=== PATIENT | female | born 1985 | race Caucasian/White ===

== ENCOUNTER 2018-03-15 14:14 | Emergency (ER) | payer MEDICAID, OTHER ==
[2018-03-15] MEDS ORDERED: ONDANSETRON HCL 4 MG/2 ML SOL ONE (14:22)
[2018-03-15] MEDS ORDERED: SODIUM CHLORIDE 0.9% 1000ML 1,000 ML IV ONE ×2 (14:23→15:40)
[2018-03-15 14:29] LABS: BASOPHILS % (AUTO) 2 % (0-3); EOSINOPHILS % (AUTO) 0 % (0-9); HEMATOCRIT 40 % (35-47); HEMOGLOBIN 13.7 gm/dl (12.0-15.5); LYMPHOCYTES % (AUTO) 42.6 % (10-50); MEAN CORPUSCULAR HEMOGLOBIN 31.8 pg (27.0-32.0); MEAN CORPUSCULAR HGB CONC 34.1 gm/dl (32.0-36.0); MEAN CORPUSCULAR VOLUME 93 fL (81-99); NEUTROPHILS % (AUTO) 46.6 % (37-80)
[2018-03-15 14:52] LABS: ALKALINE PHOSPHATASE 66 IU/L (46-116); ALT 35 IU/L (14-63); AST 35 IU/L (15-37); BILIRUBIN,TOTAL 0.2 mg/dl (0.2-1.0); BLOOD UREA NITROGEN 5 mg/dl (7-18); CALCIUM 8.7 mg/dl (8.5-10.1); CARBON DIOXIDE 28.4 mEq/L (21-32); CHLORIDE 105 mMol/L (98-107); CREATININE 0.85 mg/dl (0.60-1.00); GLOM FILT RATE 78 mL/min (>60); GLUCOSE 136 mg/dl (74-106); POTASSIUM 3.3 mMol/L (3.5-5.1); SALICYLATE 2.9 mg/dl (2.8-30.0); SODIUM 146 mMol/L (136-145); THYROID STIMULATING HORMONE 1.404 uIU/ml (0.358-3.740); TOTAL PROTEIN 7.9 gm/dl (6.4-8.2)
[2018-03-15 14:53] LABS: ACETAMINOPHEN < 2 ug/ml (10-30)
[2018-03-15 14:54] LABS: ALCOHOL 0.363 gm/dl (0.000-0.08)
[2018-03-15 17:56] LABS: APPEARANCE,URINE Clear; BILIRUBIN,URINE NEGATIVE (NEGATIVE); COLOR,URINE Light yellow; GLUCOSE, URINE (UA) NEGATIVE (NEGATIVE); KETONES,URINE NEGATIVE (NEGATIVE); LEUKOCYTE ESTERASE ,URINE NEGATIVE (NEGATIVE); NITRATE,URINE NEGATIVE (NEGATIVE); OCCULT BLOOD,URINE NEGATIVE (NEG-TRACE); UROBILINOGEN,URINE 0.2 (0.2-1.0 EU)
[2018-03-15 18:01] LABS: RBC,URINE 0-2 (0-3AV/HPF); WBC,URINE 0-2 (0-5AV/HPF)
[2018-03-15 18:02] LABS: AMPHETAMINES NEGATIVE (NEGATIVE); BACTERIA 1+ (< 1+); BARBITUATES NEGATIVE (NEGATIVE); BENZODIAZEPINES NEGATIVE (NEGATIVE); CANNABINOL(THC) NEGATIVE (NEGATIVE); COCAINE(COC) NEGATIVE (NEGATIVE); CRYSTALS NEGATIVE (0-3 AVE/HPF); METHADONE NEGATIVE (NEGATIVE); METHAMPHETAMINES NEGATIVE (NEGATIVE); OPIATES(OP13) NEGATIVE (NEGATIVE); OXYCODONE(OXY) POSITIVE (NEGATIVE); PROPOXYPHENE(PPX) NEGATIVE (NEGATIVE); TRICYCLIC ANTIDEPRESSANTS NEGATIVE (NEGATIVE)
[2018-03-15] MEDS ORDERED: LIDOCAINE HCL 2% (VISCOUS) 20 ML SOL MT ONE (20:13)
[2018-03-15] MEDS ORDERED: ALUMINUM/MAGNESIUM 30 ML SUS PO ONE (20:13)
[2018-03-15] MEDS ORDERED: ALUMINUM/MAGNESIUM 30 ML SUS ONE (20:28)
[2018-03-15] MEDS ORDERED: LIDOCAINE HCL 2% (VISCOUS) 20 ML SOL ONE (20:28)
[2018-03-16 05:41] VITALS: TEMP 98.1
[2018-03-16 08:31] VITALS: RESP 22
[2018-03-16 09:37] VITALS: BP 131/83; PULSE 97; O2SAT 94
== END 2018-03-16 09:15 ==
LOC: ED 14:14
DX: T50.992A Poisoning by other drugs, medicaments and biological substances, intentional self-harm, initial encounter (principal); F10.129 Alcohol abuse with intoxication, unspecified; F11.90 Opioid use, unspecified, uncomplicated; Y90.8 Blood alcohol level of 240 mg/100 ml or more
CPT/HCPCS: 80053; 80305; 80307; 81001; 84443; 84703; 85025; 93005; 96365; 96366; 99284; 99285; J2405; A9270-GY

== ENCOUNTER 2018-06-05 15:06 | Emergency (ER) | payer OTHER ==
[2018-06-05] MEDS: SODIUM CHLORIDE 0.9% 1000ML 1,000 ML IV SCH ×2 (15:35→16:31)
[2018-06-05 15:40] LABS: BASOPHILS % (AUTO) 2 % (0-3); EOSINOPHILS % (AUTO) 1 % (0-9); HEMATOCRIT 38 % (35-47); HEMOGLOBIN 12.5 gm/dl (12.0-15.5); LYMPHOCYTES % (AUTO) 34.2 % (10-50); MEAN CORPUSCULAR HEMOGLOBIN 29.1 pg (27.0-32.0); MEAN CORPUSCULAR HGB CONC 32.6 gm/dl (32.0-36.0); MEAN CORPUSCULAR VOLUME 89 fL (81-99); MONOCYTES % (AUTO) 21.7 % (0-12); NEUTROPHILS % (AUTO) 40.9 % (37-80)
[2018-06-05 15:49] LABS: LACTIC ACID 6.4 mMol/L (0.0-2.0)
[2018-06-05 15:53] LABS: BILIRUBIN,TOTAL 0.3 mg/dl (0.2-1.0); CALCIUM 8.1 mg/dl (8.5-10.1); CARBON DIOXIDE 27.9 mEq/L (21-32); CREATININE 0.9 mg/dl (0.60-1.00); POTASSIUM 4.3 mMol/L (3.5-5.1); TOTAL PROTEIN 6.3 gm/dl (6.4-8.2)
[2018-06-05 15:55] LABS: ALCOHOL 0.176 gm/dl (0.000-0.08)
[2018-06-05 15:58] LABS: APPEARANCE,URINE Clear; BILIRUBIN,URINE NEGATIVE (NEGATIVE); COLOR,URINE Yellow; GLUCOSE, URINE (UA) NEGATIVE (NEGATIVE); KETONES,URINE NEGATIVE (NEGATIVE); LEUKOCYTE ESTERASE ,URINE NEGATIVE (NEGATIVE); NITRATE,URINE NEGATIVE (NEGATIVE); OCCULT BLOOD,URINE NEGATIVE (NEG-TRACE)
[2018-06-05 16:01] LABS: RBC,URINE 0-2 (0-3AV/HPF)
[2018-06-05 16:02] LABS: AMPHETAMINES NEGATIVE (NEGATIVE); BACTERIA RARE (< 1+); BARBITUATES NEGATIVE (NEGATIVE); BENZODIAZEPINES NEGATIVE (NEGATIVE); CANNABINOL(THC) NEGATIVE (NEGATIVE); COCAINE(COC) NEGATIVE (NEGATIVE); CRYSTALS NEGATIVE (0-3 AVE/HPF); METHADONE NEGATIVE (NEGATIVE); METHAMPHETAMINES NEGATIVE (NEGATIVE); OPIATES(OPI) NEGATIVE (NEGATIVE); OXYCODONE(OXY) NEGATIVE (NEGATIVE); PROPOXYPHENE(PPX) NEGATIVE (NEGATIVE); TRICYCLIC ANTIDEPRESSANTS NEGATIVE (NEGATIVE); WBC,URINE 0-2 (0-5AV/HPF)
[2018-06-05] MEDS ORDERED: SODIUM CHLORIDE 0.9% 1000ML 1,000 ML IV ONE (16:45)
[2018-06-05] MEDS ORDERED: LEVOFLOXACIN 25 MG/ML 750 MG in SODIUM CHLORIDE 0.9% 250 ML 150 ML IV ONE (18:40)
[2018-06-05] MEDS ORDERED: LEVOFLOXACIN 25 MG/ML SOL IV ONE (18:50)
[2018-06-05 19:29] VITALS: RESP 18; TEMP 97.2; O2SAT 97
[2018-06-05 19:43] VITALS: BP 110/78; PULSE 90
== END 2018-06-05 19:49 | disposition short-term general hospital (02) ==
LOC: ED 15:06
DX: R40.0 Somnolence (principal)
CPT/HCPCS: 36415; 70450; 80053; 80305; 80307; 81001; 84703; 85025; 87040; 96365; 96366; 99284; 99285; J1956

== ENCOUNTER 2018-07-02 23:20 | Emergency (ER) | payer OTHER ==
[2018-07-03 00:06] VITALS: O2SAT 100
[2018-07-03 00:44] LABS: BASOPHILS % (AUTO) 2 % (0-3); EOSINOPHILS % (AUTO) 1 % (0-9); HEMATOCRIT 40 % (35-47); LYMPHOCYTES % (AUTO) 37.8 % (10-50); MEAN CORPUSCULAR HEMOGLOBIN 29.8 pg (27.0-32.0); MEAN CORPUSCULAR HGB CONC 32.3 gm/dl (32.0-36.0); MEAN CORPUSCULAR VOLUME 92 fL (81-99); MONOCYTES % (AUTO) 8.7 % (0-12); NEUTROPHILS % (AUTO) 50.9 % (37-80)
[2018-07-03 00:57] LABS: ALBUMIN 3.7 gm/dl (3.4-5.0); BILIRUBIN,TOTAL 0.3 mg/dl (0.2-1.0); CALCIUM 8.1 mg/dl (8.5-10.1); CARBON DIOXIDE 28.8 mEq/L (21-32); CREATININE 0.84 mg/dl (0.60-1.00); POTASSIUM 3.9 mMol/L (3.5-5.1); THYROID STIMULATING HORMONE 4.531 uIU/ml (0.358-3.740); TOTAL PROTEIN 7.4 gm/dl (6.4-8.2)
[2018-07-03 00:58] LABS: ALCOHOL 0.367 gm/dl (0.000-0.08)
[2018-07-03 03:44] VITALS: PULSE 105
[2018-07-03 03:45] VITALS: BP 114/82; RESP 16; TEMP 98.7
[2018-07-03] MEDS ORDERED: VALPROATE SODIUM IV ONE (04:03)
[2018-07-03] MEDS ORDERED: ONDANSETRON 4 MG ODT ONE (04:15)
[2018-07-03] MEDS ORDERED: ACETAMINOPHEN 500 MG 500 MG TAB ONE (04:17)
[2018-07-03] MEDS ORDERED: ONDANSETRON 4 MG ODT BU ONE (04:19)
[2018-07-03] MEDS ORDERED: ACETAMINOPHEN 500 MG 500 MG TAB PO ONE (04:19)
[2018-07-03] MEDS ORDERED: DIVALPROEX 250 MG TCP PO ONE (04:20)
[2018-07-03] MEDS ORDERED: SODIUM CHLORIDE 0.9% 1000ML 1,000 ML IV ONE (04:20)
[2018-07-03 04:37] LABS: APPEARANCE,URINE Clear; BILIRUBIN,URINE NEGATIVE (NEGATIVE); COLOR,URINE Light yellow; GLUCOSE, URINE (UA) NEGATIVE (NEGATIVE); KETONES,URINE NEGATIVE (NEGATIVE); LEUKOCYTE ESTERASE ,URINE NEGATIVE (NEGATIVE); NITRATE,URINE NEGATIVE (NEGATIVE); OCCULT BLOOD,URINE NEGATIVE (NEG-TRACE); PH,URINE 7.5; UROBILINOGEN,URINE 0.2 (0.2-1.0 EU)
[2018-07-03 04:44] LABS: AMPHETAMINES NEGATIVE (NEGATIVE); BARBITUATES NEGATIVE (NEGATIVE); BENZODIAZEPINES NEGATIVE (NEGATIVE); CANNABINOL(THC) NEGATIVE (NEGATIVE); COCAINE(COC) NEGATIVE (NEGATIVE); METHADONE NEGATIVE (NEGATIVE); METHAMPHETAMINES NEGATIVE (NEGATIVE); OPIATES(OPI) NEGATIVE (NEGATIVE); OXYCODONE(OXY) NEGATIVE (NEGATIVE); PROPOXYPHENE(PPX) NEGATIVE (NEGATIVE); TRICYCLIC ANTIDEPRESSANTS NEGATIVE (NEGATIVE)
[2018-07-03 04:49] LABS: BACTERIA TRACE (< 1+); CRYSTALS NEGATIVE (0-3 AVE/HPF); EPITHELIAL CELLS 0-2 (SQUAMOUS); RBC,URINE 0-1 (0-3AV/HPF); WBC,URINE 0-1 (0-5AV/HPF)
== END 2018-07-03 04:38 | disposition short-term general hospital (02) ==
LOC: ED 23:20
DX: R45.851 Suicidal ideations (principal); F32.9 Major depressive disorder, single episode, unspecified; F41.9 Anxiety disorder, unspecified; F10.10 Alcohol abuse, uncomplicated; F50.81 Binge eating disorder
CPT/HCPCS: 36415; 80053; 80305; 80307; 81001; 84443; 84703; 85025; 96365; 99283; 99285; A9270-GY; J3490

== ENCOUNTER 2018-07-21 17:24 | Observation (INO) | payer OTHER ==
[2018-07-21] MEDS ORDERED: LORAZEPAM 2 MG/ML SOL IV ONE (17:32)
[2018-07-21 17:36] VITALS: RESP 18
[2018-07-21] MEDS ORDERED: LORAZEPAM 2 MG/ML SOL ONE (17:37)
[2018-07-21] MEDS ORDERED: FOLIC ACID 1 MG TAB PO ONE (17:43)
[2018-07-21] MEDS ORDERED: THIAMINE 100 MG/ML 100 MG/ML SOL IV ONE (17:43)
[2018-07-21] MEDS ORDERED: SODIUM CHLORIDE 0.9% 1000ML 1,000 ML IV SCH (17:45)
[2018-07-21] MEDS ORDERED: THIAMINE 100 MG/ML 100 MG/ML SOL ONE (17:58)
[2018-07-21] MEDS ORDERED: FOLIC ACID 1 MG TAB ONE (17:58)
[2018-07-21] MEDS: SODIUM CHLORIDE 0.9% FLUSH 10 ML SOL IV PRN (18:03)
[2018-07-21 18:22] LABS: HEMATOCRIT 36 % (35-47); HEMOGLOBIN 11.4 gm/dl (12.0-15.5); MEAN CORPUSCULAR HEMOGLOBIN 29.7 pg (27.0-32.0); MEAN CORPUSCULAR VOLUME 93 fL (81-99)
[2018-07-21 18:36] LABS: ALBUMIN 3.6 gm/dl (3.4-5.0); BILIRUBIN,TOTAL 0.8 mg/dl (0.2-1.0); CALCIUM 8.2 mg/dl (8.5-10.1); CARBON DIOXIDE 30.9 mEq/L (21-32); CREATININE 0.86 mg/dl (0.60-1.00); MAGNESIUM 1.8 mg/dl (1.8-2.4); POTASSIUM 3.3 mMol/L (3.5-5.1); TOTAL PROTEIN 6.8 gm/dl (6.4-8.2)
[2018-07-21 18:49] LABS: NEUTROPHILS % (MANUAL) 86 % (37-80)
[2018-07-21 18:50] LABS: BAND NEUTROPHILS % (MANUAL) 1 %; BASOPHILS % (MANUAL) 1 % (0-3); EOSINOPHILS % (MANUAL) 0 % (0-9); LYMPHOCYTES % (MANUAL) 12 % (10-50); MONOCYTES % (MANUAL) 0 % (0-12); POIKILOCYTOSIS SLIGHT AMT; SPHEROCYTES PRESENT; TARGET CELLS PRESENT
[2018-07-21 19:44] LABS: APPEARANCE,URINE Clear; BILIRUBIN,URINE NEGATIVE (NEGATIVE); COLOR,URINE Yellow; GLUCOSE, URINE (UA) NEGATIVE (NEGATIVE); KETONES,URINE NEGATIVE (NEGATIVE); LEUKOCYTE ESTERASE ,URINE NEGATIVE (NEGATIVE); NITRATE,URINE NEGATIVE (NEGATIVE); OCCULT BLOOD,URINE NEGATIVE (NEG-TRACE); PH,URINE 7.5; UROBILINOGEN,URINE 0.2 (0.2-1.0 EU)
[2018-07-21 19:49] LABS: BACTERIA 1+ (< 1+); CRYSTALS NEGATIVE (0-3 AVE/HPF); RBC,URINE 0-2 (0-3AV/HPF); WBC,URINE 0-2 (0-5AV/HPF)
[2018-07-21] MEDS ORDERED: ACETAMINOPHEN 500 MG 500 MG TAB PO PRN (19:49)
[2018-07-21 19:50] LABS: AMPHETAMINES NEGATIVE (NEGATIVE); BARBITUATES NEGATIVE (NEGATIVE); BENZODIAZEPINES POSITIVE (NEGATIVE); CANNABINOL(THC) POSITIVE (NEGATIVE); COCAINE(COC) NEGATIVE (NEGATIVE); METHADONE NEGATIVE (NEGATIVE); METHAMPHETAMINES NEGATIVE (NEGATIVE); OPIATES(OPI) NEGATIVE (NEGATIVE); OXYCODONE(OXY) NEGATIVE (NEGATIVE); PROPOXYPHENE(PPX) NEGATIVE (NEGATIVE); TRICYCLIC ANTIDEPRESSANTS POSITIVE (NEGATIVE)
[2018-07-21] MEDS: POTASSIUM CHLORIDE 10 MEQ TER PO SCH ×2 (21:08→23:56)
[2018-07-21] MEDS: PANTOPRAZOLE SODIUM 40 MG ECT PO SCH (21:09)
[2018-07-21] MEDS: GABAPENTIN 300 MG CAP PO SCH (21:10)
[2018-07-21] MEDS: DIVALPROEX SODIUM 500 MG PO SCH (21:18)
[2018-07-22 00:05] VITALS: O2SAT 98
[2018-07-22] MEDS: POTASSIUM CHLORIDE 10 MEQ TER PO SCH (02:43)
[2018-07-22] MEDS: SODIUM CHLORIDE 0.9% FLUSH 10 ML SOL IV PRN (02:45)
[2018-07-22] MEDS ORDERED: LEVOTHYROXINE 0.025MG 0.025 MG TAB PO SCH (07:00)
[2018-07-22 07:24] LABS: CALCIUM 7.8 mg/dl (8.5-10.1); CARBON DIOXIDE 24.9 mEq/L (21-32); CREATININE 0.78 mg/dl (0.60-1.00); POTASSIUM 4.8 mMol/L (3.5-5.1)
[2018-07-22] MEDS ORDERED: LEVOTHYROXINE SODIUM 50 MCG TAB ONE ×2 (07:41→07:43)
[2018-07-22 07:54] VITALS: BP 115/80; PULSE 91; TEMP 98.3
[2018-07-22] MEDS: GABAPENTIN 300 MG CAP PO SCH (08:58)
[2018-07-22] MEDS: PANTOPRAZOLE SODIUM 40 MG ECT PO SCH (08:58)
[2018-07-22] MEDS: DIVALPROEX SODIUM 500 MG PO SCH (08:58)
[2018-07-22] MEDS ORDERED: FLUOXETINE HYDROCHLORIDE 10 MG CAP PO SCH (09:00)
[2018-07-22] MEDS ORDERED: THIAMINE 100 MG TAB PO SCH (09:00)
== END 2018-07-22 09:20 | disposition home or self-care (01) ==
LOC: ED 17:24 → ACUTE CARE 18:44 → UNDOADMOB 18:44 → ACUTE CARE 18:50
PROVIDERS: ADMIT Family Medicine; ATTEND Family Medicine
DX: R56.9 Unspecified convulsions (principal); F10.239 Alcohol dependence with withdrawal, unspecified; R51 Headache; F10.129 Alcohol abuse with intoxication, unspecified; E87.6 Hypokalemia
CPT/HCPCS: 36415; 70450; 80048; 80053; 80305; 80307; 81001; 83735; 84703; 85007; 85027; 93005; 96365; 96374; 96375; 99283; 99285; J2060; A9270-GY; J3411

== ENCOUNTER 2018-12-06 23:04 | Inpatient (IN) | payer OTHER ==
[2018-12-06 23:55] LABS: APPEARANCE,URINE Clear; BILIRUBIN,URINE NEGATIVE (NEGATIVE); COLOR,URINE Light yellow; GLUCOSE, URINE (UA) NEGATIVE (NEGATIVE); KETONES,URINE NEGATIVE (NEGATIVE); LEUKOCYTE ESTERASE ,URINE NEGATIVE (NEGATIVE); NITRATE,URINE NEGATIVE (NEGATIVE); OCCULT BLOOD,URINE NEGATIVE (NEG-TRACE); PH,URINE 6.5; UROBILINOGEN,URINE 0.2 (0.2-1.0 EU)
[2018-12-07] LABS: AMPHETAMINES NEGATIVE (NEGATIVE); BARBITUATES NEGATIVE (NEGATIVE); BENZODIAZEPINES NEGATIVE (NEGATIVE); CANNABINOL(THC) NEGATIVE (NEGATIVE); COCAINE(COC) NEGATIVE (NEGATIVE); METHADONE NEGATIVE (NEGATIVE); METHAMPHETAMINES NEGATIVE (NEGATIVE); OPIATES(OPI) NEGATIVE (NEGATIVE); OXYCODONE(OXY) NEGATIVE (NEGATIVE); PROPOXYPHENE(PPX) NEGATIVE (NEGATIVE); TRICYCLIC ANTIDEPRESSANTS NEGATIVE (NEGATIVE)
[2018-12-07 00:06] LABS: BASOPHILS % (AUTO) 2 % (0-3); EOSINOPHILS % (AUTO) 1 % (0-9); HEMATOCRIT 38 % (35-47); HEMOGLOBIN 12.6 gm/dl (12.0-15.5); LYMPHOCYTES % (AUTO) 50.9 % (10-50); MEAN CORPUSCULAR HEMOGLOBIN 30.8 pg (27.0-32.0); MEAN CORPUSCULAR HGB CONC 33.5 gm/dl (32.0-36.0); MEAN CORPUSCULAR VOLUME 92 fL (81-99); MONOCYTES % (AUTO) 7.1 % (0-12)
[2018-12-07 00:10] LABS: ALBUMIN 3.8 gm/dl (3.4-5.0); ALKALINE PHOSPHATASE 71 IU/L (46-116); ALT 34 IU/L (14-63); AST 41 IU/L (15-37); BILIRUBIN,TOTAL 0.2 mg/dl (0.2-1.0); BLOOD UREA NITROGEN 8 mg/dl (7-18); CALCIUM 8.4 mg/dl (8.5-10.1); CARBON DIOXIDE 31.2 mEq/L (21-32); CHLORIDE 105 mMol/L (98-107); CREATININE 0.67 mg/dl (0.60-1.00); GLUCOSE 97 mg/dl (74-106); SODIUM 147 mMol/L (136-145); THYROID STIMULATING HORMONE 3.179 uIU/ml (0.358-3.740); TOTAL PROTEIN 7.5 gm/dl (6.4-8.2)
[2018-12-07 00:11] LABS: ACETAMINOPHEN < 2 ug/ml (10-30)
[2018-12-07 00:12] LABS: ALCOHOL 0.434 gm/dl (0.000-0.08); POTASSIUM 2.6 mMol/L (3.5-5.1)
[2018-12-07 00:18] LABS: BACTERIA 1+ (< 1+); CRYSTALS NEGATIVE (0-3 AVE/HPF); EPITHELIAL CELLS 0-3 (SQUAMOUS); RBC,URINE 0-2 (0-3AV/HPF); WBC,URINE NEGATIVE (0-5AV/HPF)
[2018-12-07] MEDS ORDERED: NALOXONE HYDROCHLORIDE 0.4 MG/ML SOL IV PRN ×2 (00:34→00:36)
[2018-12-07] MEDS ORDERED: NALOXONE HYDROCHLORIDE 0.4 MG/ML SOL ONE (00:34)
[2018-12-07] MEDS ORDERED: SODIUM CHLORIDE 0.9% 1000ML 1,000 ML IV ONE ×3 (00:36→10:53)
[2018-12-07] MEDS ORDERED: HALOPERIDOL LACTATE 5 MG/ML SOL IV ONE ×2 (00:42→00:57)
[2018-12-07] MEDS ORDERED: HALOPERIDOL LACTATE 5 MG/ML SOL ONE ×2 (00:44→00:59)
[2018-12-07] MEDS ORDERED: SODIUM CHLORIDE 0.9% 250 ML 250 ML IV ONE (01:00)
[2018-12-07] MEDS ORDERED: ALUMINUM/MAGNESIUM 30 ML SUS PO PRN (01:05)
[2018-12-07] MEDS ORDERED: ONDANSETRON HCL 4 MG/2 ML SOL IV PRN (01:05)
[2018-12-07] MEDS ORDERED: LORAZEPAM 2 MG/ML SOL IV PRN ×2 (01:05→01:25)
[2018-12-07] MEDS ORDERED: POTASSIUM CHLORIDE 2 MEQ/ML 60 MEQ, LIDOCAINE HCL 1% MDV 2 ML in SODIUM CHLORIDE 0.9% 1... IV ONE (01:21)
[2018-12-07] MEDS ORDERED: LIDOCAINE HCL 1% MPF 30 SOL ONE (01:46)
[2018-12-07] MEDS ORDERED: POTASSIUM CHLORIDE 2 MEQ/ML SOL IV ONE (01:47)
[2018-12-07] MEDS: SODIUM CHLORIDE 0.9% FLUSH 10 ML SOL IV SCH ×3 (02:17→17:58)
[2018-12-07] MEDS ORDERED: LEVOTHYROXINE 0.025MG 0.025 MG TAB PO SCH (07:00)
[2018-12-07 08:02] LABS: ALBUMIN 2.9 gm/dl (3.4-5.0); BILIRUBIN,TOTAL 0.2 mg/dl (0.2-1.0); CARBON DIOXIDE 27.5 mEq/L (21-32); CREATININE 0.56 mg/dl (0.60-1.00); POTASSIUM 3.7 mMol/L (3.5-5.1); TOTAL PROTEIN 5.7 gm/dl (6.4-8.2)
[2018-12-07 08:17] LABS: ALCOHOL 0.262 gm/dl (0.000-0.08)
[2018-12-07] MEDS ORDERED: PANTOPRAZOLE SODIUM 40 MG/10 ML PDS IV SCH (09:00)
[2018-12-07] MEDS ORDERED: DIVALPROEX SODIUM 500 MG PO SCH (09:00)
[2018-12-07] MEDS ORDERED: LEVOTHYROXINE SODIUM 50 MCG TAB ONE (10:41)
[2018-12-07] MEDS: FLUOXETINE HYDROCHLORIDE 10 MG CAP PO SCH (10:51)
[2018-12-07] MEDS: GABAPENTIN 300 MG CAP PO SCH ×3 (10:51→20:07)
[2018-12-07] MEDS: MULTIVITAMIN2 1 EA TAB PO SCH (10:51)
[2018-12-07] MEDS: FOLIC ACID 1 MG TAB PO SCH (10:51)
[2018-12-07] MEDS: THIAMINE 100 MG TAB PO SCH (10:52)
[2018-12-07] MEDS: ACETAMINOPHEN 325 MG PO PRN (12:18)
[2018-12-07] MEDS: SODIUM CHLORIDE 0.45% 1000 ML 1,000 ML IV SCH ×2 (12:18→20:11)
[2018-12-07] MEDS: LORAZEPAM 0.5 MG TAB PO PRN ×2 (16:22→20:05)
[2018-12-07] MEDS: MAGNESIUM OXIDE 400 MG TAB PO SCH (16:22)
[2018-12-07] MEDS ORDERED: PRAZOSIN HCL 1 MG PO SCH (21:00)
[2018-12-08] MEDS: ACETAMINOPHEN 325 MG PO PRN ×2 (00:25→09:08)
[2018-12-08] MEDS: SODIUM CHLORIDE 0.45% 1000 ML 1,000 ML IV SCH (04:57)
[2018-12-08 05:00] VITALS: RESP 16
[2018-12-08] MEDS: SODIUM CHLORIDE 0.9% FLUSH 10 ML SOL IV SCH ×3 (05:06→17:24)
[2018-12-08] MEDS ORDERED: LEVOTHYROXINE SODIUM 50 MCG TAB PO SCH (07:00)
[2018-12-08 07:49] LABS: MAGNESIUM 1.3 mg/dl (1.8-2.4)
[2018-12-08 07:52] LABS: ALCOHOL < 0.003 gm/dl (0.000-0.08)
[2018-12-08 08:54] VITALS: O2SAT 98
[2018-12-08] MEDS ORDERED: PANTOPRAZOLE SODIUM 40 MG ECT PO SCH ×2 (09:00→11:00)
[2018-12-08] MEDS ORDERED: ONDANSETRON HCL 4 MG TAB PO PRN (09:01)
[2018-12-08] MEDS ORDERED: MAGNESIUM HYDROXIDE 30 ML SUS PO PRN (09:01)
[2018-12-08] MEDS: LORAZEPAM 0.5 MG TAB PO PRN ×2 (09:08→17:29)
[2018-12-08] MEDS: GABAPENTIN 300 MG CAP PO SCH ×2 (09:08→15:03)
[2018-12-08] MEDS: THIAMINE 100 MG TAB PO SCH (09:09)
[2018-12-08] MEDS: FOLIC ACID 1 MG TAB PO SCH (09:09)
[2018-12-08] MEDS: FLUOXETINE HYDROCHLORIDE 10 MG CAP PO SCH (09:09)
[2018-12-08] MEDS: MAGNESIUM OXIDE 400 MG TAB PO SCH (09:10)
[2018-12-08] MEDS: MULTIVITAMIN2 1 EA TAB PO SCH (09:10)
[2018-12-08 17:24] VITALS: BP 116/80; PULSE 89; TEMP 98.2
== END 2018-12-08 19:27 | DRG 918 ==
LOC: ED 23:04 → UNDOADMIN 12-07 00:21 → ACUTE CARE 12-07 00:21 → OBSVTOIN 12-07 11:30 → UNDOADMIN 12-07 11:30 → UNDODISIN 12-08 19:27
PROVIDERS: ADMIT Family Medicine; ATTEND Family Medicine
PROC: F01 Physical Rehabilitation and Diagnostic Audiology, Rehabilitation, Motor and/or Nerve Function Assessment (ICD-10-PCS; principal; 2018-12-08)
PROC: F01L5ZZ Range of Motion and Joint Integrity Assessment of Musculoskeletal System - Lower Back / Lower Extremity (ICD-10-PCS; 2018-12-08)
DX: T40.2X2A Poisoning by other opioids, intentional self-harm, initial encounter (principal); T48.1X2A Poisoning by skeletal muscle relaxants [neuromuscular blocking agents], intentional self-harm, initial encounter; F10.120 Alcohol abuse with intoxication, uncomplicated; Y90.8 Blood alcohol level of 240 mg/100 ml or more; S51.812D Laceration without foreign body of left forearm, subsequent encounter; X83.8XXD Intentional self-harm by other specified means, subsequent encounter; F32.9 Major depressive disorder, single episode, unspecified; F41.9 Anxiety disorder, unspecified; E87.6 Hypokalemia; T14.91XA Suicide attempt, initial encounter
CPT/HCPCS: 36415; 80053; 80305; 80307; 81001; 83735; 84443; 84703; 85025; 93005; 93012; 94762; 99070; 99222; 99285; J1630; J2310; J2405; J3480; A6232; A9270-GY; J2001

== ENCOUNTER 2018-12-19 15:24 | Inpatient (IN) | payer OTHER ==
[2018-12-19] MEDS ORDERED: HALOPERIDOL LACTATE 5 MG/ML SOL IM ONE (16:04)
[2018-12-19] MEDS ORDERED: LORAZEPAM 2 MG/ML SOL IM PRN ×2 (16:06→17:11)
[2018-12-19] MEDS ORDERED: HALOPERIDOL LACTATE 5 MG/ML SOL ONE (16:28)
[2018-12-19] MEDS ORDERED: LORAZEPAM 2 MG/ML SOL ONE (16:28)
[2018-12-19] MEDS ORDERED: DIPHENHYDRAMINE 50 MG/ML SOL IM ONE (17:11)
[2018-12-19 17:32] LABS: BASOPHILS % (AUTO) 2 % (0-3); EOSINOPHILS % (AUTO) 0 % (0-9); HEMATOCRIT 38 % (35-47); HEMOGLOBIN 12.5 gm/dl (12.0-15.5); LYMPHOCYTES % (AUTO) 36.7 % (10-50); MEAN CORPUSCULAR HEMOGLOBIN 30.5 pg (27.0-32.0); MEAN CORPUSCULAR HGB CONC 32.8 gm/dl (32.0-36.0); MEAN CORPUSCULAR VOLUME 93 fL (81-99); MONOCYTES % (AUTO) 8.5 % (0-12)
[2018-12-19 17:53] LABS: ALBUMIN 3.7 gm/dl (3.4-5.0); ALKALINE PHOSPHATASE 57 IU/L (46-116); ALT 14 IU/L (14-63); AST 20 IU/L (15-37); BILIRUBIN,TOTAL 0.1 mg/dl (0.2-1.0); BLOOD UREA NITROGEN 10 mg/dl (7-18); CALCIUM 7.9 mg/dl (8.5-10.1); CHLORIDE 105 mMol/L (98-107); CREATININE 0.59 mg/dl (0.60-1.00); GLUCOSE 99 mg/dl (74-106); POTASSIUM 3.7 mMol/L (3.5-5.1); SALICYLATE < 2.8 mg/dl (2.8-30.0); SODIUM 143 mMol/L (136-145); TOTAL PROTEIN 6.9 gm/dl (6.4-8.2)
[2018-12-19 17:55] LABS: ACETAMINOPHEN < 2 ug/ml (10-30); ALCOHOL 0.342 gm/dl (0.000-0.08)
[2018-12-19] MEDS: SODIUM CHLORIDE 0.9% 1000ML 1,000 ML IV SCH ×2 (20:15→20:53)
[2018-12-19] MEDS ORDERED: SODIUM CHLORIDE 0.9% 1000ML 1,000 ML IV ONE (22:43)
[2018-12-19 23:34] LABS: APPEARANCE,URINE Clear; BILIRUBIN,URINE NEGATIVE (NEGATIVE); COLOR,URINE Yellow; GLUCOSE, URINE (UA) NEGATIVE (NEGATIVE); KETONES,URINE NEGATIVE (NEGATIVE); LEUKOCYTE ESTERASE ,URINE NEGATIVE (NEGATIVE); NITRATE,URINE NEGATIVE (NEGATIVE); OCCULT BLOOD,URINE NEGATIVE (NEG-TRACE); UROBILINOGEN,URINE 0.2 (0.2-1.0 EU)
[2018-12-19 23:46] LABS: AMPHETAMINES NEGATIVE (NEGATIVE); BACTERIA 2+ (< 1+); BARBITUATES NEGATIVE (NEGATIVE); BENZODIAZEPINES NEGATIVE (NEGATIVE); CANNABINOL(THC) NEGATIVE (NEGATIVE); COCAINE(COC) NEGATIVE (NEGATIVE); CRYSTALS NEGATIVE (0-3 AVE/HPF); EPITHELIAL CELLS 0-5 (SQUAMOUS); METHADONE NEGATIVE (NEGATIVE); METHAMPHETAMINES NEGATIVE (NEGATIVE); OPIATES(OPI) NEGATIVE (NEGATIVE); OXYCODONE(OXY) NEGATIVE (NEGATIVE); PROPOXYPHENE(PPX) NEGATIVE (NEGATIVE); RBC,URINE NEGATIVE (0-3AV/HPF); TRICYCLIC ANTIDEPRESSANTS NEGATIVE (NEGATIVE); WBC,URINE 0-1 (0-5AV/HPF)
[2018-12-20] MEDS: SODIUM CHLORIDE 0.9% 1000ML 1,000 ML IV SCH ×3 (00:25→19:33)
[2018-12-20] MEDS ORDERED: ONDANSETRON HCL 4 MG TAB PO PRN (06:04)
[2018-12-20] MEDS ORDERED: LORAZEPAM 0.5 MG TAB PO PRN (06:05)
[2018-12-20 08:53] VITALS: RESP 16
[2018-12-20] MEDS: FLUOXETINE HYDROCHLORIDE 10 MG CAP PO SCH (09:39)
[2018-12-20] MEDS: LORAZEPAM 0.5 MG TAB PO PRN ×5 (11:52→21:30)
[2018-12-20] MEDS: HYDROXYZINE PAMOATE 50 MG CAP PO SCH ×4 (12:04→21:26)
[2018-12-20] MEDS ORDERED: DIVALPROEX 250 MG TAB.ER.24H PO SCH (21:00)
[2018-12-20] MEDS ORDERED: TRAZODONE HYDROCHLORIDE 50 MG TAB PO SCH (21:00)
[2018-12-20] MEDS ORDERED: IBUPROFEN 600 MG TAB PO PRN (21:16)
[2018-12-20 21:22] VITALS: O2SAT 97
[2018-12-21] MEDS: FLUOXETINE HYDROCHLORIDE 10 MG CAP PO SCH (08:16)
[2018-12-21] MEDS: HYDROXYZINE PAMOATE 50 MG CAP PO SCH (08:16)
[2018-12-21 08:18] VITALS: BP 125/86; PULSE 106; TEMP 98.3
== END 2018-12-21 08:53 | disposition short-term general hospital (02) | DRG 89 ==
LOC: ED 15:24 → UNDOADMIN 12-20 05:20 → ACUTE CARE 12-20 05:20
PROVIDERS: ADMIT Family Medicine; ATTEND Family Medicine
DX: S06.0X9A Concussion with loss of consciousness of unspecified duration, initial encounter (principal); R45.851 Suicidal ideations; F10.129 Alcohol abuse with intoxication, unspecified; Y90.8 Blood alcohol level of 240 mg/100 ml or more; F41.9 Anxiety disorder, unspecified; F32.9 Major depressive disorder, single episode, unspecified
CPT/HCPCS: 36415; 80053; 80305; 80307; 81001; 84703; 85025; 87088; 96365; 96366; 96372; 99222; 99238; 99285; 99291; J1630; J2060; A9270-GY

== ENCOUNTER 2019-01-18 20:05 | Observation (INO) | payer OTHER ==
[2019-01-18] MEDS ORDERED: THIAMINE 100 MG/ML 100 MG/ML SOL IM ONE (20:16)
[2019-01-18] MEDS ORDERED: ONDANSETRON HCL 4 MG/2 ML SOL IV ONE (20:16)
[2019-01-18] MEDS ORDERED: SODIUM CHLORIDE 0.9% 1000ML 1,000 ML IV ONE (20:18)
[2019-01-18] MEDS ORDERED: MAGNESIUM SULFATE 1 GM/2 ML SOL IV ONE (20:18)
[2019-01-18 20:25] LABS: BASOPHILS % (AUTO) 1 % (0-3); EOSINOPHILS % (AUTO) 0 % (0-9); HEMATOCRIT 44 % (35-47); LYMPHOCYTES % (AUTO) 25.5 % (10-50); MEAN CORPUSCULAR HEMOGLOBIN 30.2 pg (27.0-32.0); MEAN CORPUSCULAR VOLUME 94 fL (81-99); MONOCYTES % (AUTO) 7.3 % (0-12); NEUTROPHILS % (AUTO) 65.6 % (37-80)
[2019-01-18 20:33] LABS: INR 0.95 (0.86-1.12)
[2019-01-18 20:42] LABS: ACETAMINOPHEN < 2 ug/ml (10-30); SALICYLATE < 2.8 mg/dl (2.8-30.0)
[2019-01-18 20:45] LABS: ALBUMIN 3.9 gm/dl (3.4-5.0); BILIRUBIN,TOTAL 0.3 mg/dl (0.2-1.0); CARBON DIOXIDE 24.1 mEq/L (21-32); CREATININE 0.76 mg/dl (0.60-1.00); MAGNESIUM 1.8 mg/dl (1.8-2.4); POTASSIUM 3.5 mMol/L (3.5-5.1); TOTAL PROTEIN 7.6 gm/dl (6.4-8.2)
[2019-01-18 20:46] LABS: APPEARANCE,URINE Clear; BILIRUBIN,URINE NEGATIVE (NEGATIVE); COLOR,URINE Yellow; GLUCOSE, URINE (UA) NEGATIVE (NEGATIVE); KETONES,URINE NEGATIVE (NEGATIVE); LEUKOCYTE ESTERASE ,URINE NEGATIVE (NEGATIVE); NITRATE,URINE NEGATIVE (NEGATIVE); OCCULT BLOOD,URINE TRACE INTACT (NEG-TRACE); PH,URINE 6.5; UROBILINOGEN,URINE 0.2 (0.2-1.0 EU)
[2019-01-18] MEDS ORDERED: ONDANSETRON HCL 4 MG/2 ML SOL ONE (20:46)
[2019-01-18] MEDS ORDERED: MAGNESIUM SULFATE 5 GM/10 ML SOL ONE (20:46)
[2019-01-18] MEDS ORDERED: THIAMINE 100 MG/ML 100 MG/ML SOL ONE (20:46)
[2019-01-18 20:48] LABS: ALCOHOL 0.418 gm/dl (0.000-0.08)
[2019-01-18 20:59] LABS: AMPHETAMINES NEGATIVE (NEGATIVE); BACTERIA NEGATIVE (< 1+); BARBITUATES NEGATIVE (NEGATIVE); BENZODIAZEPINES NEGATIVE (NEGATIVE); CANNABINOL(THC) NEGATIVE (NEGATIVE); COCAINE(COC) NEGATIVE (NEGATIVE); CRYSTALS NEGATIVE (0-3 AVE/HPF); EPITHELIAL CELLS 0-3 (SQUAMOUS); METHADONE NEGATIVE (NEGATIVE); METHAMPHETAMINES NEGATIVE (NEGATIVE); OPIATES(OPI) NEGATIVE (NEGATIVE); OXYCODONE(OXY) NEGATIVE (NEGATIVE); PROPOXYPHENE(PPX) NEGATIVE (NEGATIVE); RBC,URINE 0-2 (0-3AV/HPF); TRICYCLIC ANTIDEPRESSANTS NEGATIVE (NEGATIVE); WBC,URINE 0-1 (0-5AV/HPF)
[2019-01-18] MEDS ORDERED: ACETAMINOPHEN 325 MG PO PRN (21:54)
[2019-01-18] MEDS ORDERED: ONDANSETRON HCL 4 MG/2 ML SOL IV PRN (21:54)
[2019-01-18] MEDS ORDERED: LORAZEPAM 2 MG/ML SOL IV PRN ×2 (21:55→22:02)
[2019-01-18] MEDS ORDERED: DEXTROSE/SALINE 0.45/KCL 20MEQ 1,000 ML/1,000 ML SOL IV ONE (22:48)
[2019-01-18] MEDS: DEXTROSE/SALINE 0.45/KCL 20MEQ 1,000 ML/1,000 ML SOL IV SCH (22:51)
[2019-01-19] MEDS ORDERED: LEVOTHYROXINE 25 MCG TAB PO SCH (07:00)
[2019-01-19 08:22] VITALS: RESP 16
[2019-01-19] MEDS: LORAZEPAM 0.5 MG TAB PO PRN ×2 (08:31→10:31)
[2019-01-19] MEDS ORDERED: FLUOXETINE HYDROCHLORIDE 10 MG CAP PO SCH (09:00)
[2019-01-19] MEDS ORDERED: ONDANSETRON HCL 4 MG TAB PO PRN (09:08)
[2019-01-19] MEDS ORDERED: SODIUM CHLORIDE 0.9% FLUSH 10 ML SOL IV PRN (09:15)
[2019-01-19] MEDS: DEXTROSE/SALINE 0.45/KCL 20MEQ 1,000 ML/1,000 ML SOL IV SCH (09:35)
[2019-01-19] MEDS ORDERED: LEVOTHYROXINE SODIUM 50 MCG TAB ONE (10:29)
[2019-01-19] MEDS: HYDROXYZINE PAMOATE 50 MG CAP PO SCH ×3 (10:44→16:56)
[2019-01-19] MEDS ORDERED: GABAPENTIN 300 MG CAP PO SCH (14:00)
[2019-01-19 15:19] VITALS: BP 127/90; PULSE 99; TEMP 98.9; O2SAT 98
[2019-01-19] MEDS ORDERED: DIVALPROEX 250 MG TAB.ER.24H PO SCH (21:00)
[2019-01-19] MEDS ORDERED: TRAZODONE HYDROCHLORIDE 50 MG TAB PO SCH (21:00)
[2019-01-20] MEDS ORDERED: THIAMINE 100 MG TAB PO SCH (09:00)
[2019-01-20] MEDS ORDERED: FOLIC ACID 1 MG TAB PO SCH (09:00)
[2019-01-20] MEDS ORDERED: MULTIVITAMIN2 1 EA TAB PO SCH (09:00)
== END 2019-01-19 17:35 | disposition home or self-care (01) | DRG 897 ==
LOC: ED 20:05 → ACUTE CARE 21:34
PROVIDERS: ADMIT Family Medicine; ATTEND Family Medicine
DX: F10.920 Alcohol use, unspecified with intoxication, uncomplicated (principal); Y90.8 Blood alcohol level of 240 mg/100 ml or more
CPT/HCPCS: 36415; 80053; 80305; 80307; 81001; 82150; 83735; 85025; 85610; 93005; 96365; 96372; 96374; 99218; 99285; J2405; J3475; A9270-GY; J3411